=== PATIENT | female | born 1990 | race African-American/Black ===

== ENCOUNTER 2019-12-30 08:45 | Inpatient (IN) | payer OTHER ==
[2019-12-30] MEDS ORDERED: PROMETHAZINE HCL 25 MG/1 ML VIAL IVPUSH ONE (08:55)
[2019-12-30] MEDS ORDERED: BUTORPHANOL TARTRATE 1 MG/ML VIAL IVPB ONE (08:55)
[2019-12-30] MEDS ORDERED: OXYTOCIN 30 UNITS in 0.9% NS 30 UNIT/500 ML INFUS.BAG IVPB SCH (09:00)
[2019-12-30] MEDS ORDERED: DEXTROSE 5%-LACTATED RINGERS 1,000 ML IV SCH (09:00)
[2019-12-30] MEDS ORDERED: AMPICILLIN SODIUM 2 GM VIAL ONE (09:31)
[2019-12-30 09:45] LABS: BASO % 0.3 % (0-2.0); EOS % 1.1 % (0-4.5); HEMATOCRIT 36.4 % (32.4-45.2); HEMOGLOBIN 11.8 GM/dL (10.7-15.3); LYMPH % 28.6 % (8-40); MCH 29.4 pg (25.7-33.7); MCHC 32.5 g/dl (32.0-36.0); MEAN CELL VOLUME 90.4 fl (80-96); MEAN PLT VOLUME 10.3 fl (7.5-11.1); MONO % 7.8 % (3.8-10.2); NEUT % 62.2 % (42.8-82.8); PLATELET COUNT 260 K/MM3 (134-434); RBC 4.02 M/mm3 (3.60-5.2); WHITE BLOOD COUNT 8.1 K/mm3 (4.0-10.0)
[2019-12-30 09:54] LABS: INR 0.98 (0.83-1.09); PROTHROMBIN TIME (PATIENT) 11.6 SEC (9.7-13.0)
[2019-12-30 09:56] LABS: ACTIVATED PTT 30.8 SECONDS (25.2-36.5)
[2019-12-30 10:06] VITALS: BMI 38.7
[2019-12-30 10:13] LABS: BLOOD UREA NITROGEN 9.8 mg/dL (7-18); CALCIUM 9.8 mg/dL (8.5-10.1); CREATININE 0.6 mg/dL (0.55-1.3); POTASSIUM 4.1 mmol/L (3.5-5.1)
[2019-12-30 10:59] LABS: HIV INTERPRETATION NEGATIVE (NEGATIVE)
[2019-12-30] MEDS ORDERED: AMPICILLIN SODIUM 2 GM VIAL IVPB ONE (12:00)
[2019-12-30] MEDS: AMPICILLIN SODIUM 1 GM VIAL IVPB SCH ×2 (16:00→23:25)
[2019-12-30] MEDS ORDERED: PROMETHAZINE HCL 25 MG/1 ML VIAL ONE (16:59)
[2019-12-30] MEDS ORDERED: AMPICILLIN SODIUM 1 GM VIAL ONE (16:59)
[2019-12-30] MEDS ORDERED: BUTORPHANOL TARTRATE 1 MG/ML VIAL ONE ×2 (16:59)
[2019-12-30] MEDS ORDERED: OXYTOCIN 20 UNITS in 0.9% NS 20 UNIT/1,000 ML INFUS.BAG IV ONE (19:42)
[2019-12-30] MEDS ORDERED: morphine SULFATE/PF 0.5 MG/ML (2cc Syringe - QUVA) ONE (20:23)
[2019-12-30] MEDS ORDERED: ACETAMINOPHEN 325 MG TABLET (FP) PO PRN (21:38)
[2019-12-30] MEDS ORDERED: oxyCODONE HCL 5 MG TABLET PO PRN ×2 (21:38)
[2019-12-30] MEDS ORDERED: IBUPROFEN 800 MG/8 ML IJ IVPB PRN (21:38)
[2019-12-30] MEDS ORDERED: SENNOSIDES/DOCUSATE COMBO (SENNA PLUS) TABLET (UD) PO PRN (21:38)
[2019-12-30] MEDS ORDERED: SIMETHICONE 80 MG TAB.CHEW (FP) PO PRN (21:38)
[2019-12-30] MEDS ORDERED: IBUPROFEN 600 MG TABLET (FP) PO PRN (21:38)
[2019-12-30] MEDS ORDERED: METHYLERGONOVINE MALEATE 0.2 MG/1 ML AMP IM PRN (21:38)
[2019-12-30] MEDS ORDERED: OXYTOCIN 20 UNITS in 0.9% NS 20 UNIT/1,000 ML INFUS.BAG IV SCH (21:45)
[2019-12-31 08:27] LABS: BASO % 0.1 % (0-2.0); EOS % 0.4 % (0-4.5); HEMATOCRIT 34.3 % (32.4-45.2); HEMOGLOBIN 11.2 GM/dL (10.7-15.3); MCH 29.9 pg (25.7-33.7); MCHC 32.8 g/dl (32.0-36.0); MEAN CELL VOLUME 91.3 fl (80-96); MEAN PLT VOLUME 10.5 fl (7.5-11.1); MONO % 5.8 % (3.8-10.2); NEUT % 73.7 % (42.8-82.8); PLATELET COUNT 229 K/MM3 (134-434); RBC 3.75 M/mm3 (3.60-5.2); RDW 14.3 % (11.6-15.6); WHITE BLOOD COUNT 11.6 K/mm3 (4.0-10.0)
[2019-12-31] MEDS: PRENATAL VITAMINS W/ FOLIC ACID TABLET (FP) PO SCH (09:59)
[2019-12-31] MEDS: ENOXAPARIN NA (PORCINE) 40 MG/0.4 ML DISP.SYRIN SQ SCH (09:59)
[2019-12-31] MEDS ORDERED: BISACODYL 10 MG SUPP.RECT RC PRN (21:38)
[2019-12-31 23:28] VITALS: TEMP 98.1
[2020-01-01] MEDS: ENOXAPARIN NA (PORCINE) 40 MG/0.4 ML DISP.SYRIN SQ SCH (09:55)
[2020-01-01] MEDS: PRENATAL VITAMINS W/ FOLIC ACID TABLET (FP) PO SCH (09:55)
[2020-01-01 11:57] VITALS: BP 115/77; PULSE 90
== END 2020-01-01 12:20 | disposition home or self-care (01) | DRG 786 ==
LOC: JLDR 08:45 → J3W 22:57
PROVIDERS: ADMIT Obstetrics & Gynecology; ATTEND Obstetrics & Gynecology
PROC: 10D00Z1 Extraction of Products of Conception, Low, Open Approach (ICD-10-PCS; principal; 2019-12-30)
DX: O48.0 Post-term pregnancy (principal); O41.1230 Chorioamnionitis, third trimester, not applicable or unspecified; Z3A.40 40 weeks gestation of pregnancy; O62.1 Secondary uterine inertia; O69.81X0 Labor and delivery complicated by cord around neck, without compression, not applicable or unspecified; Z22.330 Carrier of Group B streptococcus; Z37.0 Single live birth
CPT/HCPCS: 36415; 80048; 85025; 85610; 85730; 86780; 86850; 86900; 86901; 87389; 88307-TC; U0003